=== PATIENT | male | born 1960 | race Caucasian/White ===

== ENCOUNTER 2017-01-04 14:02 | Emergency (ER) | payer OTHER ==
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
[~2017-01-04 14:02] MED LIST: BACTRIM DS TABL1 TA1 PO; CORTISONE14 GM TOP; KEFLEX500 M1 PO; PREDNISONE10 MG PO
== END 2017-01-04 15:41 | disposition home or self-care (01) ==
LOC: SED 14:02
DX: S42.022A Displaced fracture of shaft of left clavicle, initial encounter for closed fracture (principal); F17.200 Nicotine dependence, unspecified, uncomplicated; V19.9XXA Pedal cyclist (driver) (passenger) injured in unspecified traffic accident, initial encounter; Y92.830 Public park as the place of occurrence of the external cause
CPT/HCPCS: 73000; 73030; 99283

== ENCOUNTER 2017-02-04 18:05 | Emergency (ER) | payer OTHER ==
[2017-02-04] MEDS ORDERED: NO MEDICATIONS (18:11)
== END 2017-02-04 19:19 | disposition home or self-care (01) ==
LOC: SED 18:05
DX: L23.7 Allergic contact dermatitis due to plants, except food (principal); F17.210 Nicotine dependence, cigarettes, uncomplicated
CPT/HCPCS: 99283